=== PATIENT | female | born 1995 | race Caucasian/White ===

== ENCOUNTER → 2018-12-29 | Outpatient (CLI) | payer BC ==
[~2018-12-29] MED LIST: PREN1TAB44
[2018-12-29 11:18] LABS: PLATELET COUNT, AUTOMATED 295 K/uL (150-450)
== END ==
LOC: LAB 08:05
PROVIDERS: ATTEND Obstetrics & Gynecology
DX: Z34.81 Encounter for supervision of other normal pregnancy, first trimester (principal); B96.89 Other specified bacterial agents as the cause of diseases classified elsewhere
CPT/HCPCS: 36415; 81001; 85025; 86592; 86703; 86762; 86850; 86900; 86901; 87077; 87088; 87186; 87340

== ENCOUNTER → 2019-01-12 | Outpatient (CLI) | payer BC ==
[~2019-01-12] MED LIST changes: +NITR-105 PO
== END ==
LOC: LAB 07:51
PROVIDERS: ATTEND Student in an Organized Health Care Education/Training Program
DX: Z34.91 Encounter for supervision of normal pregnancy, unspecified, first trimester (principal)
CPT/HCPCS: 87491; 87591

== ENCOUNTER 2019-02-16 23:04 | Emergency (ER) | payer BC ==
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
[2019-02-16 23:11] VITALS: BP 122/65
== END 2019-02-16 23:40 | disposition home or self-care (01) ==
LOC: ER 23:38
DX: O26.892 Other specified pregnancy related conditions, second trimester (principal); Z3A.17 17 weeks gestation of pregnancy
CPT/HCPCS: 99281

== ENCOUNTER → 2019-03-16 | Outpatient (CLI) | payer BC ==
--- NOTE | 2019-03-16 14:27 | RADIOLOGY IMAGING REPORT ---
FACILITY: [facility] [place] PATIENT NAME: Kelly Chun : 1995 MR: [id number] V: [id number] EXAM DATE: ORDERING PHYSICIAN: EKTA HEREDIA TECHNOLOGIST: Location: [facility] [place] Patient: Kelly Chun : 1995 Visit/Account:[id number] Date of Sevice: 03/16/2019 EXAMINATION: Ultrasound transabdominal OB > 14 weeks with anatomic evaluation HISTORY: Anatomic survey COMPARISON: None. TECHNIQUE: Transabdominal imaging was performed for assessment of the fetus and maternal pelvic structures. T ransvaginal imaging was not performed. FINDINGS: Placenta: Anterior without previa. Uterus: Gravid, otherwise normal Cervix: Long and closed. Maternal Ovaries: Not visualized. Maternal and other adnexa findings: Not visualized Intrauterine gestations: One. presentation: Breech heart rate: Normal and regular at 155 bpm Amniotic fluid index: 11.04 cm Largest amniotic fluid pocket: 2.51 cm Gestational Parameters: BPD: 4.71 cm 20 weeks/ two days, 19% HC: 18.25 cm 20 weeks/ five days, 25% AC: 15.42 cm 20 weeks/ five days, 30% FL: 3.17 cm 19 weeks/ six days, 10% Average ultrasound age (AUA): 20 weeks/three days, JUAN 07/31/2019 Estimated gestational age by JUAN: 21 weeks/zero days, JUAN 07/27/2019 Estimated weight (EFW): 345 grams +/- 51 grams EFW for JUAN: 14 percentile Anatomic Survey: Intracranial structures, 4-chamber heart, stomach, kidneys, urinary bladder, spine, 3-vessel cord and cord insertion are unremarkable. Two upper and two lower extremities visualized. Cardiac ventricula r outflow tracts, palate and lips are unremarkable in appearance. IMPRESSION: Single viable fetus in breech presentation with an estimated gestational age by measurem ents of 20 weeks and three days. Estimated gestational age by LMP is 21 weeks and zero days. Estimated weight is 345 g equivalent to the 14th percentile Report Dictated By: Latoya Sommers MD at 03/16/2019 2:17 PM Report E-Signed By: Latoya Sommers MD at 03/16/2019 2:23 PM WSN:[email or web address]
== END ==
LOC: RAD 10:02
PROVIDERS: ATTEND Student in an Organized Health Care Education/Training Program
DX: Z02.9 Encounter for administrative examinations, unspecified (principal)

== ENCOUNTER → 2019-04-13 | Outpatient (CLI) | payer SELFPAY ==
--- NOTE | 2019-04-13 13:32 | RADIOLOGY IMAGING REPORT ---
FACILITY: [facility] PATIENT NAME: Kelly Chun : 1995 MR: [id number] V: [id number] EXAM DATE: ORDERING PHYSICIAN: EKTA HEREDIA TECHNOLOGIST: Location: [facility] [place] Patient: Kelly Chun : 1995 Visit/Account:[id number] Date of Sevice: 04/13/2019 EXAMINATION: Ultrasound transabdominal OB > 14 weeks with anatomic evaluation HISTORY: Size less than dates COMPARISON: March 16, 2019 TECHNIQUE: Transabdominal imaging was performed for assessment of the fetus and maternal pelvic structures. T ransvaginal imaging was not performed. FINDINGS: Placenta: Anterior without previa. Uterus: Gravid, otherwise normal Cervix: Not evaluated Maternal Ovaries: Not visualized. Maternal and other adnexa findings: Not visualized Intrauterine gestations: One. presentation: Cephalic heart rate: Normal and regular at 161 bpm Amniotic fluid index: 8.58 cm Largest amniotic fluid pocket: 3.81 cm Gestational Parameters: BPD: 6.16 cm 15 weeks/ one days, 42% HC: 22.88 cm 25 weeks/ zero days, 25% AC: 18.87 cm 24 weeks/ four days, 27% FL: 4.34 cm 24 weeks/ two days, 16% Average ultrasound age (AUA): 24 weeks/six days, JUAN 07/28/2019 Estimated gestational age by LMP: 25 weeks/zero days, JUAN 07/27/2019 Estimated weight (EFW): 701 grams +/- 103 grams EFW for LMP: 20% percentile Anatomic Survey: Anatomic survey not performed IMPRESSION: Single viable fetus in cephalic presentation with an estimated gestational age by measur ements of 24 weeks and six days. Estimated gestational age by LMP is 25 weeks. Estimated weight is 701 g equivalent to the 20th percentile Report Dictated By: Latoya Sommers MD at 04/13/2019 1:21 PM Report E-Signed By: Latoya Sommers MD at 04/13/2019 1:26 PM WSN:[email or web address]
== END ==
LOC: RAD 11:12
PROVIDERS: ATTEND Student in an Organized Health Care Education/Training Program
DX: Z02.9 Encounter for administrative examinations, unspecified (principal)

== ENCOUNTER → 2019-04-27 | Outpatient (CLI) | payer SELFPAY ==
[2019-04-27 12:26] LABS: PLATELET COUNT, AUTOMATED 263 K/uL (150-450)
--- NOTE | 2019-04-27 14:11 | RADIOLOGY IMAGING REPORT ---
FACILITY: [facility] PATIENT NAME: Kelly Chun : 1995 MR: [id number] V: [id number] EXAM DATE: ORDERING PHYSICIAN: BARBARA CROSS TECHNOLOGIST: Location: [facility] [place] Patient: Kelly Chun : 1995 Visit/Account:[id number] Date of Sevice: 04/27/2019 Limited abdominal ultrasound of the right lower quadrant Indication: Right lower quadrant pain Comparison: None available Findings No free fluid identified within the right lower abdomen region. The appendix was not identified on this examination. There is no focal abnormality on sonographic salomon luation of the right lower quadrant. IMPRESSION: 1.Appendix not visualized on this examination. Report Dictated By: Sushil Corona at 04/27/2019 2:01 PM Report E-Signed By: Sushil Corona at 04/27/2019 2:05 PM WSN:[email or web address]
--- NOTE | 2019-04-27 17:12 | RADIOLOGY IMAGING REPORT ---
FACILITY: [facility] PATIENT NAME: Kelly Chun : 1995 MR: [id number] V: [id number] EXAM DATE: ORDERING PHYSICIAN: BARBARA CROSS TECHNOLOGIST: Location: [facility] - [place] Patient: Kelly Chun : 1995 Visit/Account:[id number] Date of Sevice: 04/27/2019 [facility] [place] OB LIMITED HISTORY: Right lower quadrant pain. COMPARISON: 04/13/2019 TECHNIQUE: Transabdominal imaging was performed for assessment of the fetus and maternal pelvic s tructures. Transvaginal imaging was not performed. FINDINGS: Intrauterine gestations: One. presentation: Cephalic. heart rate: 135 bpm. Amniotic fluid volume: Normal; 4-quadrant JUAN 10.9 cm; MVP 3.5 cm. Placenta: Anterior and unremarkable without evidence of abruption. Uterus: Gravid, otherwise grossly unremarkable where visualized. Maternal adnexa/ovaries: Grossly unremarkable, each ovary visualized. Cervix: Not able to be visualized. Gestational Parameters: BPD: 6.8 cm 27 weeks/2 days; 47 percentile HC: 24.3 cm 26 weeks/3 days; 9 percentile AC: 21.7 cm 26 weeks/2 days; 18 percentile FL: 4.9 cm 26 weeks/2 days; 17 percentile Average ultrasound age (AUA): 26 weeks/ 4 days Estimated age based on reported JUAN: 27 weeks/ 0 days Estimated weight (EFW): 916 grams +/- 134 grams EFW for LMP: 15th percentile IMPRESSION: 1. Single live intrauterine gestation; average ultrasound age 26 weeks/4 days. 2. Amniotic fluid volume within normal limits. 3. No evidence of placental abruption or other findings to explain patient's reported right lower dariana drant pain. Report Dictated By: Uriah Mcguire MD at 04/27/2019 4:58 PM Report E-Signed By: Uriah Mcguire MD at 04/27/2019 5:06 PM WSN:[id number]
== END ==
LOC: LAB 11:56
PROVIDERS: ATTEND Advanced Practice Midwife
DX: O26.892 Other specified pregnancy related conditions, second trimester (principal)
CPT/HCPCS: 36415; 76705; 82040; 82247; 82310; 82374; 82435; 82565; 82947; 84075; 84132; 84155; 84295; 84450; 84460; 84520; 85025

== ENCOUNTER → 2019-05-04 | Outpatient (CLI) | payer SELFPAY ==
[~2019-05-04] MED LIST changes: +DIPH0.5S2 IM
[2019-05-04 17:02] LABS: PLATELET COUNT, AUTOMATED 238 K/uL (150-450)
== END ==
LOC: LAB 08:07
PROVIDERS: ATTEND Student in an Organized Health Care Education/Training Program
DX: Z34.92 Encounter for supervision of normal pregnancy, unspecified, second trimester (principal)
CPT/HCPCS: 36415; 82950; 85025